=== PATIENT | male | born 1980 | race Caucasian/White ===

== ENCOUNTER 2018-08-20 10:25 | Emergency (ER) | payer OTHER ==
[2018-08-20 10:45] VITALS: BP 173/38; PULSE 94; TEMP 97.5; BMI 26.4
--- NOTE | 2018-08-20 11:50 | PDOC ---
History of Present Illness - General Chief Complaint: Back Pain Stated Complaint: LWR BACK PAIN Time Seen by Provider: 08/20/18 11:41 History Source: Patient Exam Limitations: No Limitations - History of Present Illness Initial Comments: Patient is a 61-year-old male who states that he injured himself yesterday while on the job while lifting a heavy stone. He denies pain to the left lower back. Patient also states that the pain radiates to his scrotum. Patient denies penile discharge. Patient denies present or surgeries to his back. He denies urinary symptoms. Patient denies history of IV drug use. Patient denies loss of bowel/bladder control or urinary retention. Patient describes the pain as a constant ache/throb and rates it at a 6 out of 10. He denies attempting anything [id number] to relieve his symptoms. Patient denies any relieving factors however states ambulating exacerbates his discomfort. Patient also denies lower extremity paresthesia. 08/20/18 11:48 Past History - Travel Traveled outside of the country in the last 30 days: No Close contact w/someone who was outside of country & ill: No - Past Medical History Allergies/Adverse Reactions: Allergies Allergy/AdvReac Type Severity Reaction Status Date / Time No Known Allergies Allergy Verified 08/20/18 10:38 Home Medications: Ambulatory Orders Cyclobenzaprine HCl [Flexeril 10 mg] 10 mg PO TID PRN #10 tablet 08/20/18 - Suicide/Smoking/Psychosocial Hx Smoking History: Never smoked Information on smoking cessation initiated: No Hx Alcohol Use: No Drug/Substance Use Hx: No Review of Systems - Review of Systems Able to Perform ROS?: Yes Constitutional: No: Chills, Fever Respiratory: No: Cough Cardiac (ROS): No: Chest Pain : No: Burning, Dysuria, Hematuria, Testicular Mass, Testicular Swelling Musculoskeletal: Yes: Back Pain *Physical Exam - Vital Signs Last Vital Signs Temp Pulse Resp BP Pulse Ox 97.5 F L 94 H 17 173/38 H 95 08/20/18 10:38 08/20/18 10:38 08/20/18 10:38 08/20/18 10:38 08/20/18 10:38 - Physical Exam Comments: Constitutional: VS stated, pt appears in no apparent distress, ambulated to examination room, steady gait noted. Skin: Warm and dry. Intact, no lesions or excoriations. Head: Normocephalic; atraumatic Eyes: conjunctiva pink without injection or discharge. Throat: Oropharynx with pink and moist mucosa. Lungs: Bilateral breath sounds clear upon auscultation. Heart: Regular rate and rhythm, Abdomen: Soft and non-tender. Bowel sounds present in all 4 quadrants, no hepatosplenomegaly, No bruits auscultated. No guarding or rebound. No masses or visible pulsations present. No suprapubic tenderness. No CVAT. No bruits. Musculoskeletal: . Normal curves of cervical, thoracic, and lumbar spine. Full ROM of cervical and lumbar spine. Proximal joints normal; neck, arms, hips, knees, and ankles with full range of active and passive motion. Muscles appear symmetric. Sensation intact medially and laterally. No saddle anesthesia. DTRs+ 2. No tenderness on palpation of spine. 5/5 strength in upper extremities and lower extremity groups. Neurologic: Awake, alert. Conversation fluent. Male: Normal phallus. Circumcised or uncircumcised. Normal scrotal skin and contents. Testes symmetric with normal lie, testicular adnexa normal. No masses. GARRET Welch was my lining printer during the genitourinary examination. 08/20/18 11:56 Medical Decision Making - Medical Decision Making Patient has no red flag signs which warrant an emergent MRI. He has no pain upon palpation to the cervical, thoracic or lumbar spine warranting x-rays. Patient was given Toradol 60 mg IM and Flexeril 5 mg by mouth. 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 08/20/18 11:57 *DC/Admit/Observation/Transfer Diagnosis at time of Disposition: Musculoskeletal pain - Discharge Dispostion Disposition: HOME Condition at time of disposition: Good - Prescriptions Prescriptions: Cyclobenzaprine HCl [Flexeril 10 mg] 10 mg PO TID PRN #10 tablet PRN Reason: Back Pain - Referrals Referrals: Carlos Diaz [Primary Care Provider] - - Patient Instructions Printed Discharge Instructions: DI for Low Back Pain Additional Instructions: Take ibuprofen 600 mg every 6 hours and the Flexeril as needed. The Flexeril is sedating. Do not drive, drink alcohol or work while taking this medication. Also use a heating pad or a hot bath to assist with your discomfort. Follow-up with your primary care physician. - Post Discharge Activity Forms/Work/School Notes: Back to Work
[2018-08-20] MEDS ORDERED: KETOROLAC TROMETHAMINE 60 MG/2 ML VIAL IM ONE (11:54)
[2018-08-20] MEDS ORDERED: CYCLOBENZAPRINE HCL 10 MG TABLET (FP) PO ONE (11:55)
[2018-08-20] MEDS ORDERED: KETOROLAC TROMETHAMINE 60 MG/2 ML VIAL ONE (11:59)
[2018-08-20] MEDS ORDERED: CYCLOBENZAPRINE HCL 10 MG TABLET (FP) ONE (11:59)
== END 2018-08-20 12:07 | disposition home or self-care (01) ==
LOC: JERFT 10:25
CPT/HCPCS: 99281-25

== ENCOUNTER 2019-02-07 00:29 | Emergency (ER) | payer OTHER ==
[2019-02-07 00:40] VITALS: TEMP 97.3; BMI 27.8
[2019-02-07 01:47] VITALS: PULSE 100
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
[2019-02-07 03:28] VITALS: BP 147/99
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
== END 2019-02-07 04:08 ==
LOC: JER 00:29
DX: F19.929 Other psychoactive substance use, unspecified with intoxication, unspecified (principal); G40.909 Epilepsy, unspecified, not intractable, without status epilepticus; F17.210 Nicotine dependence, cigarettes, uncomplicated
CPT/HCPCS: 99283-25

== ENCOUNTER 2022-10-12 20:27 | Emergency (ER) | payer OTHER ==
[2022-10-12 20:34] VITALS: BP 154/105; PULSE 104; RESP 18; TEMP 99.6; BMI 29.7
[2022-10-12] MEDS ORDERED: LORazepam 2 MG/ML SDV VIAL IM ONE (21:27)
== END 2022-10-12 22:58 | disposition home or self-care (01) ==
LOC: JER 20:27
PROC: 3E023GC Introduction of Other Therapeutic Substance into Muscle, Percutaneous Approach (ICD-10-PCS; principal; 2022-10-12)
DX: S09.90XA Unspecified injury of head, initial encounter (principal); S60.511A Abrasion of right hand, initial encounter; S80.212A Abrasion, left knee, initial encounter; S00.83XA Contusion of other part of head, initial encounter; S40.211A Abrasion of right shoulder, initial encounter; F19.920 Other psychoactive substance use, unspecified with intoxication, uncomplicated; W19.XXXA Unspecified fall, initial encounter; Y93.9 Activity, unspecified; Y92.9 Unspecified place or not applicable
CPT/HCPCS: 70450-TC; 72125-TC; 99284-25

== ENCOUNTER 2023-05-19 19:15 | Emergency (ER) | payer OTHER ==
[2023-05-19 19:23] VITALS: RESP 18; BMI 27.8
[2023-05-19] MEDS ORDERED: ACETAMINOPHEN 325 MG TABLET (FP) ONE (19:44)
[2023-05-19] MEDS: ACETAMINOPHEN 500 MG TABLET (FP) PO STA (19:49)
[2023-05-19] MEDS ORDERED: guaiFENesin/D-METHORPHAN HB 10 ML UNIT-DOSE CUPS ONE (20:48)
[2023-05-19] MEDS: guaiFENesin 200 MG/10 ML 10 ML UNIT-DOSE CUPS PO ONE (20:51)
[2023-05-19 21:04] VITALS: BP 116/66; PULSE 78; TEMP 100.5
== END 2023-05-19 21:04 | disposition home or self-care (01) ==
LOC: JER 19:15
DX: R50.9 Fever, unspecified (principal); R05.9 Cough, unspecified; R09.81 Nasal congestion; J10.1 Influenza due to other identified influenza virus with other respiratory manifestations; J06.9 Acute upper respiratory infection, unspecified; Z20.822 Contact with and (suspected) exposure to COVID-19
CPT/HCPCS: 0241U-QW; 71046-TC-FY; 99284-25